=== PATIENT | male | born 1960 | race Caucasian/White ===

== ENCOUNTER 2017-03-14 13:31 | Emergency (ER) | payer OTHER ==
[~2017-03-14] VITALS: Ht 188 cm; Wt 108.8 kg
[~2017-03-14 13:31] MED LIST: ALBU1AER9 INH; AMB10 PO; CYM60 PO; FLM4 PO; FLNIN NAE; FLVHFA220 INH; PANT40TA PO; STRUNK PO; SUCR1TAB PO
[2017-03-14 13:38] VITALS: Ht 188 cm; Wt 108.8 kg
[2017-03-14] MEDS ORDERED: PROMETHAZINE HCL INJ 25 MG in SODIUM CHLORIDE 0.9% 50ML 50 ML IV STA (13:57)
[2017-03-14] MEDS ORDERED: DiphenhydrAMINE HCL 50 MG/ML VIAL IV STA (13:57)
[2017-03-14] MEDS ORDERED: SODIUM CHLORIDE 0.9% 1000ML 1,000 ML IV STA (13:57)
--- NOTE | 2017-03-14 14:03 | EMERGENCY ROOM VISIT NOTE ---
History Report prepared by Anthony: Anna Melara Under the Supervision of: Dr. Mariano Webster D.O. First contact with patient: 13:48 Chief Complaint: HEADACHE Stated Complaint: MIGRAINE HAQUE X 7 DAYS History of Present Illness The patient is a 56 year old male who presents to the Emergency Room with complaints of constant headache starting 1.5 weeks ago. The headache is present behind his eyes, in his temples, and in the back of his head. He had tried taking Aleve today for his headache to no significant relief. He notes the headache started when he was started on Concerta which he is no longer taking. With the new medication, he also started feeling dizzy and lightheaded. He is still feeling dizzy at times and feeling off balance. He has been feeling sore all over. He feels nauseous today. He denies any fever, vomiting, or weakness. He denies head injury. He has a history of malignant melanoma in 2001. He has had a tonsillectomy and adenoidectomy. He notes a family history of aneurysm and stroke. Source of History: patient Onset: 1.5 weeks ago Position: head Quality: ache Timing: constant Associated Symptoms: No fevers, No vomiting, No weakness Note: Pt reports feeling sore all over, dizzy, off balance. Review of Systems See HPI for pertinent positives & negatives. A total of 10 systems reviewed and were otherwise negative. Past Medical & Surgical Medical Problems: (1) Bronchitis (2) malignant melenoma Family History Cancer Diabetes mellitus Heart disease Hypertension Social History Smoking Status: Former Smoker Alcohol Use: occasionally Drug Use: none Housing Status: lives alone Occupation Status: unemployed Current/Historical Medications Scheduled Atomoxetine Hcl (Strattera), 80 MG PO DAILY Montelukast Sodium (Singulair), 10 MG PO QPM Pantoprazole (Protonix), 40 MG PO DAILY Tamsulosin Hcl (Flomax), 0.4 MG PO DAILY Scheduled PRN Acetamin/Butalbital/Caffeine (Fioricet), 1 TAB PO BID PRN for Migraine Naproxen (Naproxen), 1 TAB PO UD PRN for NADER Zolpidem Tartrate (Zolpidem Tartrate), 10 MG PO HS PRN for Insomnia Allergies Coded Allergies: Prednisone (Verified Allergy, Mild, OTHER, 03/14/17) Sulfa Drugs (Verified Allergy, Mild, 03/14/17) Physical Exam Vital Signs Date Time Temp Pulse Resp B/P (MAP) Pulse Ox O2 Delivery O2 Flow Rate FiO2 03/14/17 17:03 78 15 143/85 98 03/14/17 16:31 78 143/85 03/14/17 15:30 84 03/14/17 15:19 81 15 145/91 98 Room Air 03/14/17 13:38 37.1 90 18 182/103 96 Room Air Physical Exam GENERAL: Patient is awake, alert, and in no acute distress. Patient is resting comfortably and showing no signs of anxiety EYES: The conjunctivae are clear. The pupils are round and reactive. EARS, NOSE, MOUTH AND THROAT: The nose is without any evidence of any deformity. Mucous membranes are moist tongue is midline NECK: The neck is nontender and supple. RESPIRATORY: Normal respiratory effort is noted there is no evidence of wheezing rhonchi or rales CARDIOVASCULAR: Regular rate and rhythm noted there no murmurs rubs or gallops normal S1 normal S2 GASTROINTESTINAL: The abdomen is soft. Bowel sounds are present in all quadrants. Abdomen is nontender MUSCULOSKELETAL/EXTREMITIES: There is no evidence of gross deformity full range of motion is noted in the hips and shoulders SKIN: There is no obvious evidence of any rash. There are no petechiae, pallor or cyanosis noted. NEUROLOGIC: Patient is awake alert and oriented x3 strength is symmetric patellar reflexes are 2+ bilaterally Medical Decision & Procedures ER Provider Diagnostic Interpretation: X-ray results as stated below per interpretation by me and the radiologist. Radiology results as stated below per my review and radiologist interpretation: CHEST ONE VIEW PORTABLE HISTORY: Generalized abdominal pain. COMPARISON: Chest 08/29/2011. FINDINGS: Right hilar thickening which has progressed. The lungs are otherwise clear. No pleural effusions. No pneumothorax. The heart is normal in size. IMPRESSION: Progressive right hilar thickening. This could be due to an overlying opacity or right hilar mass/lymphadenopathy. Follow-up PA and lateral views the chest or chest CT are recommended Electronically signed by: Dre Bustillo M.D. 03/14/2017 2:17 PM Dictated Date/Time: 03/14/2017 2:[address] OF THE CHEST WITH IV CONTRAST CLINICAL HISTORY: Abnormal chest radiograph. COMPARISON STUDY: Chest radiograph performed earlier today. TECHNIQUE: Following IV administration of 119 mL of Optiray-320, helical axial images of the chest were obtained. Sagittal and coronal reconstructions were viewed as well as maximal intensity projections on an independent 3-D workstation. A dose lowering technique was utilized adhering to the principles of ALARA. CT DOSE: 1610.23 mGy.cm FINDINGS: No enlarged axillary, mediastinal or hilar lymph nodes are present. The heart is mildly enlarged. There is mild dilatation of the central pulmonary arteries. Note is made of a 1.1 cm circumscribed nodule within the anterior segment of the right upper lobe shown on image 145 of 281. A 7 mm right middle lobe nodule shown image [address] of November 02, 2008 and is benign given stability. There is no consolidation to suggest pneumonia. Subpleural opacities reflect atelectasis. A hypodense right hepatic lobe lesion is unchanged since abdominal CT of November 02, 2008. This is benign given stability. IMPRESSION: 1. 1.1 cm circumscribed right upper lobe nodule. This nodule is indeterminate and a PET/CT could be obtained for further evaluation. 2. Mild dilatation of the central pulmonary arteries which likely accounts for hilar fullness on chest radiograph. This suggests pulmonary arterial hypertension. 3. No thoracic lymphadenopathy. Electronically signed by: Christopher Moreland M.D. 03/14/2017 3:24 PM Dictated Date/Time: 03/14/2017 3:15 PM ANGIOGRAPHY HEAD COMBO CLINICAL HISTORY: Headache. Family history of aneurysm. COMPARISON STUDY: Head CT February 16, 2008. TECHNIQUE: Initially, unenhanced axial images of the head were obtained. Arterial phase images of the head were obtained following intravenous injection of 119 cc Optiray 320 IV. Sagittal and coronal reconstructed reviewed as well as maximal intensity projections on an independent 3-D workstation. FINDINGS: There is trace acute subarachnoid hemorrhage within the left frontal lobe shown best on axial image 18 as well as trace subarachnoid hemorrhage within the posterior right frontal lobe shown on axial image 24 and 25. Ventricular system is normal. Basilar cisterns are patent. There are no extra-axial collections. Andujar-white differentiation is maintained. There are no findings to suggest acute dural sinus thrombosis or acute territorial infarct. There is a risa cisterna magna. Note is made of a probable 2 mm aneurysm of the left cavernous carotid shown on axial image 9256. This likely does not account for the subarachnoid hemorrhage on this examination. No additional intracranial aneurysms are identified. The left vertebral artery is dominant. No abrupt vessel cut off is identified. No additional intracranial aneurysms are identified. IMPRESSION: 2 small foci of acute subarachnoid hemorrhage overlying the left frontal lobe and posterior right frontal lobe. 2 mm left cavernous carotid aneurysm which likely does not account for the subarachnoid hemorrhage. The etiology for the subarachnoid hemorrhage on this exam is unclear. Findings discussed with Dr. Webster at time of dictation. Electronically signed by: Christopher Moreland M.D. 03/14/2017 3:14 PM Dictated Date/Time: 03/14/2017 3:01 PM Laboratory Results 03/14/17 14:20 Red Blood Count 4.92, Mean Corpuscular Volume 89.4, Mean Corpuscular Hemoglobin 31.3, Mean Corpuscular Hemoglobin Concent 35.0, Mean Platelet Volume 9.6, Neutrophils (%) (Auto) 72.8, Lymphocytes (%) (Auto) 16.9, Monocytes (%) (Auto) 6.3, Eosinophils (%) (Auto) 3.6, Basophils (%) (Auto) 0.3, Neutrophils # (Auto) 5.39, Lymphocytes # (Auto) 1.25, Monocytes # (Auto) 0.47, Eosinophils # (Auto) 0.27, Basophils # (Auto) 0.02 03/14/17 14:20 Test 03/14/17 14:20 03/14/17 14:26 White Blood Count 7.41 K/uL (4.8-10.8) Red Blood Count 4.92 M/uL (4.7-6.1) Hemoglobin 15.4 g/dL (14.0-18.0) Hematocrit 44.0 % (42-52) Mean Corpuscular Volume 89.4 fL (80-100) Mean Corpuscular Hemoglobin 31.3 pg (25-34) Mean Corpuscular Hemoglobin Concent 35.0 g/dl (32-36) Platelet Count 213 K/uL (130-400) Mean Platelet Volume 9.6 fL (7.4-10.4) Neutrophils (%) (Auto) 72.8 % Lymphocytes (%) (Auto) 16.9 % Monocytes (%) (Auto) 6.3 % Eosinophils (%) (Auto) 3.6 % Basophils (%) (Auto) 0.3 % Neutrophils # (Auto) 5.39 K/uL (1.4-6.5) Lymphocytes # (Auto) 1.25 K/uL (1.2-3.4) Monocytes # (Auto) 0.47 K/uL (0.11-0.59) Eosinophils # (Auto) 0.27 K/uL (0-0.5) Basophils # (Auto) 0.02 K/uL (0-0.2) RDW Standard Deviation 39.5 fL (36.4-46.3) RDW Coefficient of Variation 12.3 % (11.5-14.5) Immature Granulocyte % (Auto) 0.1 % Immature Granulocyte # (Auto) 0.01 K/uL (0.00-0.02) Prothrombin Time 10.7 SECONDS (9.0-12.0) Prothromb Time International Ratio 1.0 (0.9-1.1) Activated Partial Thromboplast Time 25.9 SECONDS (21.0-31.0) Partial Thromboplastin Ratio 1.0 Est Creatinine Clear Calc Drug Dose 113.7 ml/min Estimated GFR () 104.5 Estimated GFR (Non- 90.2 BUN/Creatinine Ratio 18.1 (10-20) Calcium Level 8.6 mg/dl (8.5-10.1) Total Bilirubin 0.4 mg/dl (0.2-1) Direct Bilirubin 0.1 mg/dl (0-0.2) Aspartate Amino Transf (AST/SGOT) 27 U/L (15-37) Alanine Aminotransferase (ALT/SGPT) 41 U/L (12-78) Alkaline Phosphatase 88 U/L (45-117) Total Protein 7.2 gm/dl (6.4-8.2) Albumin 4.0 gm/dl (3.4-5.0) Lipase 168 U/L (73-393) Bedside Hemoglobin 15.3 g/dl (14.0-18.0) Bedside Hematocrit 45 % (42-52) Bedside Sodium 139 mEq/L (135-144) Bedside Potassium 3.8 mEq/L (3.3-5.0) Bedside Chloride 100 mEq/L (101-112) Bedside Total CO2 27 mEq/l (24-31) Anion Gap 16.0 mmol/L (16-25) Bedside Blood Urea Nitrogen 17 mg/dl (7-18) Bedside Creatinine 1.0 mg/dl (0.6-1.3) Bedside Glucose (other) 85 mg/dl (70-99) Bedside Ionized Calcium (Ngoc) 1.15 mmol/l (1.12-1.32) Laboratory results per my review. Medications Administered Medications (Trade) Dose Ordered Sig/Diane Route Start Time Stop Time Status Last Admin Dose Admin Sodium Chloride 1,000 ml @ 999 mls/hr Q1H1M STAT IV 03/14/17 13:57 03/14/17 14:57 DC 03/14/17 14:16 999 MLS/HR Promethazine HCl 25 mg/Sodium Chloride 51 ml @ 204 mls/hr NOW STAT IV 03/14/17 13:57 03/14/17 14:11 DC 03/14/17 14:16 204 MLS/HR Diphenhydramine HCl (Benadryl Inj) 12.5 mg NOW STAT IV 03/14/17 13:57 03/14/17 13:59 DC 03/14/17 14:16 12.5 MG ED Course 1350: The patient was evaluated in room C11B. A complete history and physical examination were performed. 1357: Benadryl Inj 12.5 mg IV, Promethazine HCl 25 mg/Sodium Chloride 51 ml @ 204 mls/hr IV, NSS 1000 ml @ 999 mls/hr IV. 1510: Dr. Moreland the reading radiologist called and informed me that the patient has a subarachnoid. 1516: I reevaluated the patient. I discussed the results with him. He is in agreement with transfer to [facility] for further management. 1545: I discussed the patients case with Dr. Lopez, ICU attending at [facility]. He has accepted the patient for transfer. Medical Decision Prior records/ancillary studies reviewed. Triage Nursing notes reviewed. The patient's history was concerning for headache. Differential diagnosis: Etiologies such as migraine headache, meningitis, sinusitis, CO exposure, ICH, SAH, infection, tumor, headache, sinus thrombosis, arterial dissection, as well as others were entertained. The patient is a 56-year-old male who presented to the emergency department for an evaluation of headache. The patient does not normally have a history of chronic headaches but started noticing a headache over the last week to week and a half. The patient was seen by his primary care physician. He was started on pain medication but this does not appear to be helping his condition. I discussed the patient's laboratory and radiographic studies with him. He was treated with IV fluids IV pain medicine and IV antiemetics. The patient has a family history for intracranial aneurysm so CT angiography was obtained. This appears to show signs of subarachnoid hemorrhage but no definite source for the blood. I discussed the patient's condition with [facility]. I discussed the case with the neck skewer. They've agreed to accept the patient in transfer. The patient's condition appears to be stable and is been ongoing for the last week. He does not appear to require any parenteral blood pressure management at this time. I feel he can be safely managed and transported via ambulance. I reevaluated the patient multiple times. Medication Reconcilliation Current Medication List: was personally reviewed by me Blood Pressure Screening Patient's blood pressure: Elevated blood pressure Blood pressure disposition: Elevated BP felt to be situational Consults Time Called: 1520 Consulting Physician: Dr. Lopez, ICU attending at [facility] Returned Call: [phone] I discussed the patients case with him. He has accepted the patient for transfer. Impression Primary Impression: Nontraumatic subarachnoid hemorrhage Additional Impressions: Headache Pulmonary nodule Scribe Attestation The scribe's documentation has been prepared under my direction and personally reviewed by me in its entirety. I confirm that the note above accurately reflects all work, treatment, procedures, and medical decision making performed by me. Departure Information Dispostion Transfer Acute Care Facility Referrals No Doctor, Assigned (PCP) Patient Instructions My [facility] Problem Qualifiers Additional Impressions: Headache Headache type: unspecified Headache chronicity pattern: acute headache Intractability: not intractable Qualified Codes: R51 - Headache
[2017-03-14] MEDS ORDERED: NAPR-1221 PO (14:13)
[2017-03-14] MEDS ORDERED: FRCT/ PO (14:13)
[2017-03-14] MEDS ORDERED: STR/80 PO (14:13)
[2017-03-14] MEDS ORDERED: OPTIRAY 320 IV PRN (14:15)
--- NOTE | 2017-03-14 14:19 | DIAGNOSTIC IMAGING REPORT ---
CHEST ONE VIEW PORTABLE HISTORY: Generalized abdominal pain. COMPARISON: Chest 08/29/2011. FINDINGS: Right hilar thickening which has progressed. The lungs are otherwise clear. No pleural effusions. No pneumothorax. The heart is normal in size. IMPRESSION: Progressive right hilar thickening. This could be due to an overlying opacity or right hilar mass/lymphadenopathy. Follow-up PA and lateral views the chest or chest CT are recommended Electronically signed by: Dre Bustillo M.D. 03/14/2017 2:17 PM Dictated Date/Time: 03/14/2017 2:15 PM
[2017-03-14 14:29] LABS: BASO % 0.3 %; BASO ABS # 0.02 K/uL (0-0.2); COMPLETE YES; EOS % 3.6 %; IG% 0.1 %; LYMPH % 16.9 %; LYMPH ABS # 1.25 K/uL (1.2-3.4); MEAN CELL VOLUME 89.4 fL (80-100); MEAN CORPUSCULAR HEMOGLOBIN 31.3 pg (25-34); MEAN PLATELET VOLUME 9.6 fL (7.4-10.4); MONO % 6.3 %; NEUT % 72.8 %; PLATELET COUNT 213 K/uL (130-400); RED BLOOD COUNT 4.92 M/uL (4.7-6.1); WHITE BLOOD COUNT 7.41 K/uL (4.8-10.8)
[2017-03-14 14:35] LABS: PROTHROMBIN TIME (PATIENT) 10.7 SECONDS (9.0-12.0)
[2017-03-14 14:40] LABS: ISTAT HEMOGLOBIN 15.3 g/dl (14.0-18.0); ISTAT IONIZED CALCIUM 1.15 mmol/l (1.12-1.32)
[2017-03-14 14:46] LABS: BUN/CREATININE RATIO 18.1 (10-20); CALCIUM 8.6 mg/dl (8.5-10.1); CREATININE 0.93 mg/dl (0.60-1.40); POTASSIUM 3.7 mmol/L (3.5-5.1)
--- NOTE | 2017-03-14 15:15 | DIAGNOSTIC IMAGING REPORT ---
ANGIOGRAPHY HEAD COMBO CLINICAL HISTORY: Headache. Family history of aneurysm. COMPARISON STUDY: Head CT February 16, 2008. TECHNIQUE: Initially, unenhanced axial images of the head were obtained. Arterial phase images of the head were obtained following intravenous injection of 119 cc Optiray 320 IV. Sagittal and coronal reconstructed reviewed as well as maximal intensity projections on an independent 3-D workstation. FINDINGS: There is trace acute subarachnoid hemorrhage within the left frontal lobe shown best on axial image 18 as well as trace subarachnoid hemorrhage within the posterior right frontal lobe shown on axial image 24 and 25. Ventricular system is normal. Basilar cisterns are patent. There are no extra-axial collections. Andujar-white differentiation is maintained. There are no findings to suggest acute dural sinus thrombosis or acute territorial infarct. There is a risa cisterna magna. Note is made of a probable 2 mm aneurysm of the left cavernous carotid shown on axial image 9256. This likely does not account for the subarachnoid hemorrhage on this examination. No additional intracranial aneurysms are identified. The left vertebral artery is dominant. No abrupt vessel cut off is identified. No additional intracranial aneurysms are identified. IMPRESSION: 2 small foci of acute subarachnoid hemorrhage overlying the left frontal lobe and posterior right frontal lobe. 2 mm left cavernous carotid aneurysm which likely does not account for the subarachnoid hemorrhage. The etiology for the subarachnoid hemorrhage on this exam is unclear. Findings discussed with Dr. Webster at time of dictation. Electronically signed by: Christopher Moreland M.D. 03/14/2017 3:14 PM Dictated Date/Time: 03/14/2017 3:01 PM
--- NOTE | 2017-03-14 15:25 | DIAGNOSTIC IMAGING REPORT ---
CT OF THE CHEST WITH IV CONTRAST CLINICAL HISTORY: Abnormal chest radiograph. COMPARISON STUDY: Chest radiograph performed earlier today. TECHNIQUE: Following IV administration of 119 mL of Optiray-320, helical axial images of the chest were obtained. Sagittal and coronal reconstructions were viewed as well as maximal intensity projections on an independent 3-D workstation. A dose lowering technique was utilized adhering to the principles of ALARA. CT DOSE: 1610.23 mGy.cm FINDINGS: No enlarged axillary, mediastinal or hilar lymph nodes are present. The heart is mildly enlarged. There is mild dilatation of the central pulmonary arteries. Note is made of a 1.1 cm circumscribed nodule within the anterior segment of the right upper lobe shown on image 145 of 281. A 7 mm right middle lobe nodule shown image [address] of November 02, 2008 and is benign given stability. There is no consolidation to suggest pneumonia. Subpleural opacities reflect atelectasis. A hypodense right hepatic lobe lesion is unchanged since abdominal CT of November 02, 2008. This is benign given stability. IMPRESSION: 1. 1.1 cm circumscribed right upper lobe nodule. This nodule is indeterminate and a PET/CT could be obtained for further evaluation. 2. Mild dilatation of the central pulmonary arteries which likely accounts for hilar fullness on chest radiograph. This suggests pulmonary arterial hypertension. 3. No thoracic lymphadenopathy. Electronically signed by: Christopher Moreland M.D. 03/14/2017 3:24 PM Dictated Date/Time: 03/14/2017 3:15 PM
[2017-03-14 17:03] VITALS: BP 143/85; PULSE 78; O2SAT 98
[2017-04-19] MEDS ORDERED: ZOLP10TA6 PO (14:13)
[2017-04-19] MEDS ORDERED: PANT40TA PO (14:13)
[2017-04-19] MEDS ORDERED: TAMS0.4C38 PO (14:13)
[2017-04-19] MEDS ORDERED: MONT1TAB3 PO (14:13)
== END 2017-03-14 17:04 | disposition short-term general hospital (02) ==
LOC: C.EDB 13:32 → C.EDC 17:04
DX: I60.9 Nontraumatic subarachnoid hemorrhage, unspecified (principal); R51 Headache; R91.1 Solitary pulmonary nodule; Z85.820 Personal history of malignant melanoma of skin; Z87.891 Personal history of nicotine dependence; Z79.899 Other long term (current) drug therapy; Z88.2 Allergy status to sulfonamides; Z88.8 Allergy status to other drugs, medicaments and biological substances; Z80.9 Family history of malignant neoplasm, unspecified; Z83.3 Family history of diabetes mellitus; Z82.49 Family history of ischemic heart disease and other diseases of the circulatory system

== ENCOUNTER 2017-04-19 21:50 | Emergency (ER) | payer OTHER ==
[~2017-04-19] VITALS: Ht 188 cm; Wt 111.0 kg
[~2017-04-19 21:50] MED LIST changes: -ALBU1AER9 INH; -AMB10 PO; -CYM60 PO; -FLM4 PO; -FLNIN NAE; -FLVHFA220 INH; +FRCT/ PO; +MONT1TAB3 PO; +NAPR-1221 PO; +STR/80 PO; -STRUNK PO; -SUCR1TAB PO; +TAMS0.4C38 PO; +ZOLP10TA6 PO
[2017-04-19 21:52] VITALS: Ht 188 cm; Wt 111.0 kg
[2017-04-19] MEDS ORDERED: ONDANSETRON INJ 2 MG/ML 2 ML VIAL IV STA (22:07)
[2017-04-19] MEDS ORDERED: LORAZEPAM 2 MG/ML 1 ML VIAL IV STA (22:07)
[2017-04-19] MEDS ORDERED: MoRPHine SULFATE 4 MG/ML 1 ML CARP\\VIAL IV PRN (22:15)
[2017-04-19 22:19] LABS: BASO % 0.4 %; BASO ABS # 0.02 K/uL (0-0.2); COMPLETE YES; EOS % 4.7 %; HEMATOCRIT 41.4 % (42-52); IG% 0.5 %; LYMPH % 32.1 %; LYMPH ABS # 1.78 K/uL (1.2-3.4); MEAN CORPUSCULAR HEMOGLOBIN 31.8 pg (25-34); MEAN CORPUSCULAR HGB CONC 34.5 g/dl (32-36); MEAN PLATELET VOLUME 9.4 fL (7.4-10.4); MONO % 7.7 %; NEUT % 54.6 %; PLATELET COUNT 217 K/uL (130-400); WHITE BLOOD COUNT 5.55 K/uL (4.8-10.8)
--- NOTE | 2017-04-19 22:19 | EMERGENCY ROOM VISIT NOTE ---
History Report prepared by Anthony: Joe Weldon Under the Supervision of: Dr. Darshan Hung M.D. First contact with patient: 22:03 Chief Complaint: NEURO SYMPTOMS Stated Complaint: STOKE AGAIN History of Present Illness The patient is a 56 year old male who presents to the Emergency Room with complaints of a pressure-like headache that began 1 hour ago. He rates his pain an 8/10 in severity. He has a past medical history of an subarachnoid hemorrhage that occurred on March 14 of this year. He was treated at [facility] at that time for three days and his doctors said that his bleed was secondary to his ADD medication Strattera. He stopped taking this medication. They could not find the source of his bleed. He notes that he followed up with his PCP after this and was started on a high blood pressure medication. It caused him to have intermittent headaches, so he was told to stop taking it. He states that his current headache feels similar to how he felt at that time. Tonight, he was having dinner with his when he went home and sat down on his bed. He suddenly was experiencing blurring to his vision and then he began to have this headache. He checked his blood pressure which was 170/90. He denies any weakness or numbness. Source of History: patient Onset: 1 hour ago Position: head Symptom Intensity: 8/10 Quality: pressure Timing: constant Associated Symptoms: No weakness, No numbness Note: He is having vision blurring and notes that his blood pressure is elevated. Review of Systems See HPI for pertinent positives & negatives. A total of 10 systems reviewed and were otherwise negative. Past Medical & Surgical Medical Problems: (1) Bronchitis (2) malignant melenoma Family History Cancer Diabetes mellitus Heart disease Hypertension Social History Smoking Status: Former Smoker Alcohol Use: occasionally Drug Use: none Housing Status: lives alone Occupation Status: unemployed Current/Historical Medications Scheduled Fexofenadine Hcl (Vanessa), 180 MG PO QAM Lisinopril (Prinivil), 10 MG PO QD@08 Montelukast Sodium (Singulair), 10 MG PO HS Multiple Vitamins W/ Minerals (Multi For Him 50+), 1 TAB PO QAM Pantoprazole (Protonix), 40 MG PO QAM Tamsulosin Hcl (Flomax), 0.4 MG PO QAM Scheduled PRN Zolpidem Tartrate (Zolpidem Tartrate), 10 MG PO HS PRN for Insomnia Allergies Coded Allergies: Prednisone (Verified Allergy, Mild, OTHER, 03/14/17) Sulfa Drugs (Verified Allergy, Mild, 03/14/17) Physical Exam Vital Signs Date Time Temp Pulse Resp B/P (MAP) Pulse Ox O2 Delivery O2 Flow Rate FiO2 04/19/17 23:07 36.8 54 18 113/79 95 Room Air 04/19/17 22:46 55 04/19/17 22:23 36.9 60 18 173/76 97 Room Air 04/19/17 21:52 36.9 58 18 189/88 97 Room Air Physical Exam GENERAL: Patient is in no acute distress. HEENT: No acute trauma, normocephalic atraumatic, mucous membranes moist, no nasal congestion, no scleral icterus. NECK: No stridor, no adenopathy, no meningismus, trachea is midline. LUNGS: Clear to auscultation bilaterally, no wheeze, no rhonchi, breath sounds equal. HEART: Without murmurs gallops or rubs, regular rate and rhythm. ABDOMEN: Soft, nontender, bowel sounds positive, no hernias, no peritonitis. EXTREMITIES: No cyanosis or edema, full range of motion of all the joints without pain or difficulty, no signs for acute trauma. NEUROLOGIC: Oriented x 3, no acute motor or sensory deficits, no focal weakness. No pronator drift or cerebellar dysfunction. No speech slur or facial droop. SKIN: No rash, no jaundice, no diaphoresis. Medical Decision & Procedures ER Provider Diagnostic Interpretation: Radiology results as stated below per my review and radiologist interpretation: HEAD WITHOUT CONTRAST (CT) CT DOSE: 712.55 mGy.cm HISTORY: Mental status change Evaluate for hemorrhage or pathology TECHNIQUE: Multiaxial CT images of the head were performed without the use of intravenous contrast. A dose lowering technique was utilized adhering to the principles of ALARA. Comparison: 03/12/2017 Findings: The paranasal sinuses and mastoid air cells are clear. The calvarium and skull base are intact. The ventricles and sulci are within normal limits. There is no mass, hematoma, midline shift, or acute infarct. Previously described left subarachnoid hemorrhage has resolved. No evidence for acute intracranial hemorrhage. Impression: No acute intracranial abnormality. The above report was generated using voice recognition software. It may contain grammatical, syntax or spelling errors. Electronically signed by: Mike Maldonado M.D. 04/19/2017 10:32 PM Dictated Date/Time: 04/19/2017 10:31 PM Laboratory Results 04/19/17 22:07 Red Blood Count 4.50, Mean Corpuscular Volume 92.0, Mean Corpuscular Hemoglobin 31.8, Mean Corpuscular Hemoglobin Concent 34.5, Mean Platelet Volume 9.4, Neutrophils (%) (Auto) 54.6, Lymphocytes (%) (Auto) 32.1, Monocytes (%) (Auto) 7.7, Eosinophils (%) (Auto) 4.7, Basophils (%) (Auto) 0.4, Neutrophils # (Auto) 3.03, Lymphocytes # (Auto) 1.78, Monocytes # (Auto) 0.43, Eosinophils # (Auto) 0.26, Basophils # (Auto) 0.02 04/19/17 22:07 Test 04/19/17 22:07 White Blood Count 5.55 K/uL (4.8-10.8) Red Blood Count 4.50 M/uL (4.7-6.1) Hemoglobin 14.3 g/dL (14.0-18.0) Hematocrit 41.4 % (42-52) Mean Corpuscular Volume 92.0 fL (80-100) Mean Corpuscular Hemoglobin 31.8 pg (25-34) Mean Corpuscular Hemoglobin Concent 34.5 g/dl (32-36) Platelet Count 217 K/uL (130-400) Mean Platelet Volume 9.4 fL (7.4-10.4) Neutrophils (%) (Auto) 54.6 % Lymphocytes (%) (Auto) 32.1 % Monocytes (%) (Auto) 7.7 % Eosinophils (%) (Auto) 4.7 % Basophils (%) (Auto) 0.4 % Neutrophils # (Auto) 3.03 K/uL (1.4-6.5) Lymphocytes # (Auto) 1.78 K/uL (1.2-3.4) Monocytes # (Auto) 0.43 K/uL (0.11-0.59) Eosinophils # (Auto) 0.26 K/uL (0-0.5) Basophils # (Auto) 0.02 K/uL (0-0.2) RDW Standard Deviation 42.6 fL (36.4-46.3) RDW Coefficient of Variation 12.7 % (11.5-14.5) Immature Granulocyte % (Auto) 0.5 % Immature Granulocyte # (Auto) 0.03 K/uL (0.00-0.02) Prothrombin Time 10.7 SECONDS (9.0-12.0) Prothromb Time International Ratio 1.0 (0.9-1.1) Activated Partial Thromboplast Time 25.7 SECONDS (21.0-31.0) Partial Thromboplastin Ratio 1.0 Anion Gap 8.0 mmol/L (3-11) Est Creatinine Clear Calc Drug Dose 107.8 ml/min Estimated GFR () 96.9 Estimated GFR (Non- 83.6 BUN/Creatinine Ratio 15.2 (10-20) Calcium Level 8.9 mg/dl (8.5-10.1) Total Bilirubin 0.2 mg/dl (0.2-1) Aspartate Amino Transf (AST/SGOT) 31 U/L (15-37) Alanine Aminotransferase (ALT/SGPT) 47 U/L (12-78) Alkaline Phosphatase 114 U/L (45-117) Total Protein 7.9 gm/dl (6.4-8.2) Albumin 4.2 gm/dl (3.4-5.0) Globulin 3.7 gm/dl (2.5-4.0) Albumin/Globulin Ratio 1.1 (0.9-2) Laboratory results reviewed by me. Medications Administered Medications (Trade) Dose Ordered Sig/Diane Route Start Time Stop Time Status Last Admin Dose Admin Ondansetron HCl (Zofran Inj) 4 mg NOW STAT IV 04/19/17 22:07 04/19/17 22:11 DC 04/19/17 22:18 4 MG Morphine Sulfate (MoRPHine SULFATE INJ) 4 mg Q15M PRN IV 04/19/17 22:15 04/19/17 23:42 DC 04/19/17 22:17 4 MG Lorazepam (Ativan Inj) 1 mg NOW STAT IV 04/19/17 22:07 04/19/17 22:11 DC 04/19/17 22:18 1 MG Lisinopril (Zestril Tab) 10 mg NOW STAT PO 04/19/17 23:09 04/19/17 23:10 DC 04/19/17 23:28 10 MG ED Course 2202: The patient was evaluated in room A3. A complete history and physical exam was performed. 2206: Ordered Ativan Inj 1 mg IV, Zofran Inj 4 mg IV 2214: Ordered Morphine Sulfate 4 mg IV 2308: Ordered Zestril Tab 10 mg PO. The patient is feeling better. He will follow up with his PCP later this week to reassess his blood pressure. 0: Reevaluated the patient. Discussed results and discharge instructions: He verbalized understanding and agreement. The patient is ready for discharge. Medical Decision Differential diagnosis includes but is not limited to recurrent subarachnoid hemorrhage, intracranial bleeding, stroke, headache, hypertension, stress, electrolyte abnormality, anemia, and infection. There is no leukocytosis or concerning anemia. No significant electrolyte abnormality, kidney failure or hepatitis. There is no coagulopathy. Brain CT shows no acute bleed or mass effect. The area of previous bleeding has resolved. On my exam, there were no focal neurologic deficits. The patient was not febrile. The patient admits to some increased stress and anxiety. He was very concerned about his elevated blood pressure. He did receive IV morphine, IV Zofran and IV Ativan. He was eventually given a dose of oral lisinopril. The patient was reassured by his testing. Patient had been on some medication for blood pressure, he believes it was Norvasc. He did not tolerate this medication and it was stopped. He was not started on anything new. I am going to discharge the patient on lisinopril, 10 mg daily for now. He will see his doctor this week to see how his blood pressure is running. He will return to this ER for worsening symptoms, worsening headache or lack of improvement. Certainly, his elevated blood pressure may have led to his presentation today. Anxiety may also have been part of the reason for his visit. Medication Reconcilliation Current Medication List: was personally reviewed by me Blood Pressure Screening Patient's blood pressure: Elevated blood pressure Blood pressure disposition: Referred to PCP Impression Primary Impression: Blurry vision Additional Impressions: Headache Hypertension Scribe Attestation The scribe's documentation has been prepared under my direction and personally reviewed by me in its entirety. I confirm that the note above accurately reflects all work, treatment, procedures, and medical decision making performed by me. Departure Information Dispostion Home / Self-Care Prescriptions Lisinopril (Prinivil) 10 Mg Tab 10 MG PO QD@08, #10 TAB 1 Refill Prov: Darshan Hung M.D. 04/19/17 Referrals No Doctor, Assigned (PCP) Forms HOME CARE DOCUMENTATION FORM, IMPORTANT VISIT INFORMATION, WORK / SCHOOL INSTRUCTIONS Patient Instructions My [facility] Additional Instructions start Lisinopril for blood pressure control see your fam md this week for a recheck of the blood pressure brain CT scan and lab testing was all ok today return if worsening Problem Qualifiers
[2017-04-19 22:29] LABS: PROTHROMBIN TIME (PATIENT) 10.7 SECONDS (9.0-12.0)
[2017-04-19 22:31] LABS: BUN/CREATININE RATIO 15.2 (10-20); CALCIUM 8.9 mg/dl (8.5-10.1); CREATININE 0.99 mg/dl (0.60-1.40); POTASSIUM 3.6 mmol/L (3.5-5.1)
[2017-04-19 22:34] LABS: ALB/GLOB RATIO 1.1 (0.9-2)
--- NOTE | 2017-04-19 22:34 | DIAGNOSTIC IMAGING REPORT ---
HEAD WITHOUT CONTRAST (CT) CT DOSE: 712.55 mGy.cm HISTORY: Mental status change Evaluate for hemorrhage or pathology TECHNIQUE: Multiaxial CT images of the head were performed without the use of intravenous contrast. A dose lowering technique was utilized adhering to the principles of ALARA. Comparison: 03/12/2017 Findings: The paranasal sinuses and mastoid air cells are clear. The calvarium and skull base are intact. The ventricles and sulci are within normal limits. There is no mass, hematoma, midline shift, or acute infarct. Previously described left subarachnoid hemorrhage has resolved. No evidence for acute intracranial hemorrhage. Impression: No acute intracranial abnormality. The above report was generated using voice recognition software. It may contain grammatical, syntax or spelling errors. Electronically signed by: Mike Maldonado M.D. 04/19/2017 10:32 PM Dictated Date/Time: 04/19/2017 10:31 PM
[2017-04-19] MEDS ORDERED: FEXO1TAB46 PO (22:48)
[2017-04-19] MEDS ORDERED: MULT-221 PO (22:48)
[2017-04-19 23:07] VITALS: BP 113/79; PULSE 54; TEMP 36.8; O2SAT 95
[2017-04-19] MEDS ORDERED: LISINOPRIL 10 MG TAB PO STA (23:09)
[2017-04-19] MEDS ORDERED: LISI10TA PO (23:13)
== END 2017-04-19 23:27 | disposition home or self-care (01) ==
LOC: C.EDB 21:51 → C.EDA 23:27
DX: R51 Headache (principal); I10 Essential (primary) hypertension; H53.8 Other visual disturbances; F90.9 Attention-deficit hyperactivity disorder, unspecified type; Z85.820 Personal history of malignant melanoma of skin; Z87.891 Personal history of nicotine dependence; Z80.9 Family history of malignant neoplasm, unspecified; Z83.3 Family history of diabetes mellitus; Z82.49 Family history of ischemic heart disease and other diseases of the circulatory system; Z79.899 Other long term (current) drug therapy; F41.9 Anxiety disorder, unspecified; F43.9 Reaction to severe stress, unspecified

== ENCOUNTER 2017-07-21 12:21 | Emergency (ER) | payer OTHER ==
[~2017-07-21] VITALS: Ht 188 cm; Wt 113.8 kg
[~2017-07-21 12:21] MED LIST changes: +FEXO1TAB46 PO; -FRCT/ PO; +LISI10TA PO; +MULT-221 PO; -NAPR-1221 PO; -STR/80 PO
[2017-07-21 12:29] VITALS: Ht 188 cm; Wt 113.8 kg
[2017-07-21] MEDS ORDERED: MAGN400T6 PO (12:45)
[2017-07-21 13:36] LABS: BASO % 0.6 %; BASO ABS # 0.02 K/uL (0-0.2); EOS % 4.3 %; EOS ABS # 0.15 K/uL (0-0.5); HEMATOCRIT 41.9 % (42-52); HEMOGLOBIN 14.7 g/dL (14.0-18.0); LYMPH % 25.6 %; LYMPH ABS # 0.89 K/uL (1.2-3.4); MEAN CELL VOLUME 89.9 fL (80-100); MEAN CORPUSCULAR HEMOGLOBIN 31.5 pg (25-34); MEAN CORPUSCULAR HGB CONC 35.1 g/dl (32-36); MEAN PLATELET VOLUME 9.7 fL (7.4-10.4); MONO % 7.8 %; MONO ABS # 0.27 K/uL (0.11-0.59); NEUT % 61.7 %; NEUT ABS # 2.14 K/uL (1.4-6.5); PLATELET COUNT 210 K/uL (130-400); RED CELL DISTRIBUTION WIDTH CV 12.4 % (11.5-14.5); RED CELL DISTRIBUTION WIDTH SD 40.3 fL (36.4-46.3); WHITE BLOOD COUNT 3.47 K/uL (4.8-10.8)
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
[2017-07-21 13:46] LABS: PTT PATIENT 25.3 SECONDS (21.0-31.0)
--- NOTE | 2017-07-21 13:53 | DIAGNOSTIC IMAGING REPORT ---
CT HEAD WITHOUT CONTRAST (CT) CLINICAL HISTORY: Dizziness. Headache. Head trauma. COMPARISON STUDY: 04/19/2017 TECHNIQUE: Axial CT of the brain is performed from the vertex to the skull base. IV contrast was not administered for this examination. A dose lowering technique was utilized adhering to the principles of ALARA. CT DOSE: 788.63 mGycm FINDINGS: No intra or extra-axial mass lesions are visualized. There is no CT evidence of acute cortical infarction. There is no evidence of midline shift. There is no acute hemorrhage. No calvarial fractures are visualized. There is no evidence of pathologic ventricular dilatation. There is no evidence of acute sinusitis IMPRESSION: No acute intracranial findings Electronically signed by: Cristi Hough M.D. 07/21/2017 1:51 PM Dictated Date/Time: 07/21/2017 1:50 PM
[2017-07-21 13:55] LABS: CALCIUM 9.1 mg/dl (8.5-10.1); CREATININE 1.05 mg/dl (0.60-1.40); POTASSIUM 3.7 mmol/L (3.5-5.1)
--- NOTE | 2017-07-21 13:56 | DIAGNOSTIC IMAGING REPORT ---
CT OF THE CERVICAL SPINE CLINICAL HISTORY: Neck pain status post trauma COMPARISON STUDY: 2007 CT DOSE: 487.91 mGycm TECHNIQUE: CT scan of the cervical spine was performed from the skull base to the thoracic inlet. Images are reviewed in the axial, sagittal, and coronal planes. IV contrast was not administered for this examination. A dose lowering technique was utilized adhering to the principles of ALARA. FINDINGS: The visualized portions of the lung apices reveal no evidence of pneumothorax. The prevertebral soft tissues are normal. No fractures or traumatic subluxations are visualized. There are multilevel degenerative changes. 2.8 mm of retrolisthesis of C3 on C4 is felt to be degenerative. 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 IMPRESSION: No evidence of acute fracture or traumatic subluxation. Electronically signed by: Cristi Hough M.D. 07/21/2017 1:54 PM Dictated Date/Time: 07/21/2017 1:51 PM
[2017-07-21 14:09] VITALS: O2SAT 95
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
[2017-07-21] MEDS ORDERED: IBUPROFEN 600 MG TAB PO STA (15:04)
[2017-07-21] MEDS ORDERED: ONDANSETRON INJ 2 MG/ML 2 ML VIAL IV STA (15:12)
[2017-07-21] MEDS ORDERED: ONDA4TAB46 PO (15:14)
[2017-07-21] MEDS ORDERED: TRAM-453 PO (15:14)
[2017-07-21 16:05] VITALS: BP 150/90; PULSE 54; TEMP 36.8; O2SAT 99
== END 2017-07-21 16:05 | disposition home or self-care (01) ==
LOC: EDBD 12:21 → C.EDA 12:23
DX: S22.32XA Fracture of one rib, left side, initial encounter for closed fracture (principal); R51 Headache; M54.2 Cervicalgia; M54.6 Pain in thoracic spine; R00.1 Bradycardia, unspecified; Z79.899 Other long term (current) drug therapy; Z88.2 Allergy status to sulfonamides; Z88.8 Allergy status to other drugs, medicaments and biological substances; Z85.820 Personal history of malignant melanoma of skin; Z86.73 Personal history of transient ischemic attack (TIA), and cerebral infarction without residual deficits; Z87.891 Personal history of nicotine dependence; Z82.49 Family history of ischemic heart disease and other diseases of the circulatory system; Z83.3 Family history of diabetes mellitus; V89.2XXA Person injured in unspecified motor-vehicle accident, traffic, initial encounter

== ENCOUNTER 2017-09-29 12:42 | Emergency (ER) | payer OTHER ==
[~2017-09-29] VITALS: Ht 188 cm; Wt 114.5 kg
[~2017-09-29 12:42] MED LIST changes: -FEXO1TAB46 PO; +MAGN400T6 PO; +ONDA4TAB46 PO
[2017-09-29 12:52] VITALS: TEMP 36.9; Ht 188 cm; Wt 114.5 kg
[2017-09-29] MEDS ORDERED: IBUPROFEN 600 MG TAB PO STA (13:08)
[2017-09-29] MEDS ORDERED: ACETAMINOPHEN 500 MG TAB PO STA (13:08)
--- NOTE | 2017-09-29 13:15 | EMERGENCY ROOM VISIT NOTE ---
History Report prepared by Anthony: Imtiaz Cool Under the Supervision of: Dr. Darshan Hung M.D. First contact with patient: 12:59 Chief Complaint: HEADACHE Stated Complaint: HEADACHE History of Present Illness The patient is a 56 year old male who presents to the Emergency Room with complaints of a constant headache that began on Wednesday, 5 days ago. The patient describes the headache as a "pressure pressing down" on the top of his head. He rates the severity of his pain as an 8/10 currently. The patient had a Subarachnoid Hemorrhage in February of 2017. He did have a headache with this episode, but the severity of the pain was more severe as compared to today. The patient was seen at the [facility] today, who referred him here due to his headache. He adds that he had recurrent headaches after the hemorrhage and was placed on 25 mg of Metoprol daily. He recently had this dosage cut to 12.5 mg daily due to feeling tired. This medication was changed by a neurologist at the [facility] in [place]. Source of History: patient Onset: 5 days ago Position: head (Top of head) Symptom Intensity: 8/10 Quality: pressure, other ("pressing down") Timing: constant Review of Systems See HPI for pertinent positives & negatives. A total of 10 systems reviewed and were otherwise negative. Past Medical & Surgical Medical Problems: (1) Bronchitis (2) malignant melenoma Family History Cancer Diabetes mellitus Heart disease Hypertension Social History Smoking Status: Never Smoker Alcohol Use: occasionally Drug Use: none Housing Status: lives alone Occupation Status: unemployed Current/Historical Medications Scheduled Loratadine (Claritin), 10 MG PO QAM Magnesium Oxide (Mag-Ox), 420 MG PO BID Metoprolol Succinate (Toprol Xl), 37.5 MG PO DAILY Montelukast Sodium (Singulair), 10 MG PO HS Multiple Vitamins W/ Minerals (Multi For Him 50+), 1 TAB PO QAM Pantoprazole (Protonix), 40 MG PO QAM Tamsulosin Hcl (Flomax), 0.4 MG PO QAM Zolpidem Tartrate (Zolpidem Tartrate), 10 MG PO HS Scheduled PRN Albuterol Hfa (Ventolin Hfa), 2 PUFFS INH Q6H PRN for Shortness of Breath Sildenafil Citrate (Viagra), 100 MG PO WEEKLY PRN for ED Allergies Coded Allergies: Prednisone (Verified Allergy, Mild, OTHER, 09/29/17) Sulfa Drugs (Verified Allergy, Mild, 09/29/17) Latex (Unverified Adverse Reaction, Intermediate, ITCHY, 09/29/17) Physical Exam Vital Signs Date Time Temp Pulse Resp B/P (MAP) Pulse Ox O2 Delivery O2 Flow Rate FiO2 09/29/17 16:26 47 16 146/88 99 09/29/17 14:56 84 16 146/88 09/29/17 12:52 36.9 53 20 136/92 96 Room Air Physical Exam GENERAL: Patient is in no acute distress. HEENT: No acute trauma, normocephalic atraumatic, mucous membranes moist, no nasal congestion, no scleral icterus. NECK: No stridor, no adenopathy, no meningismus, trachea is midline. LUNGS: Clear to auscultation bilaterally, no wheeze, no rhonchi, breath sounds equal. HEART: Without murmurs gallops or rubs, regular rate and rhythm. ABDOMEN: Soft, nontender, bowel sounds positive, no hernias, no peritonitis. EXTREMITIES: No cyanosis or edema, full range of motion of all the joints without pain or difficulty, no signs for acute trauma. NEUROLOGIC: Oriented x 3, no acute motor or sensory deficits, no focal weakness. There is no pronator drift or cerebellar dysfunction. SKIN: No rash, no jaundice, no diaphoresis. Medical Decision & Procedures ER Provider Diagnostic Interpretation: Radiology results as stated below per my review and radiologist interpretation: HEAD WITHOUT CONTRAST (CT) CLINICAL HISTORY: 56 years-old Male with HEADACHE, HIST OR SA HEM. Acute headache TECHNIQUE: Multiple axial CT images of the head were obtained without contrast. A dose lowering technique was utilized adhering to the principles of ALARA. CT DOSE: 788.63 mGycm COMPARISON: CT head 07/21/2017. FINDINGS: No acute intracranial hemorrhage, midline shift, intracranial mass, hydrocephalus, territorial ischemia or abnormal extra-axial collection. 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 Minimal patchy low-attenuation within the periventricular white matter suggests chronic microvascular ischemic changes. The calvarium is intact. The paranasal sinuses, mastoid air cells, and middle ear cavities are clear. Prior left-sided maxillary antrostomy. IMPRESSION: No acute intracranial abnormality. The above report was generated using voice recognition software. It may contain grammatical, syntax or spelling errors. Electronically signed by: Gerardo Gaston M.D. 09/29/2017 1:44 PM Dictated Date/Time: 09/29/2017 1:38 PM Medications Administered Medications (Trade) Dose Ordered Sig/Diane Route Start Time Stop Time Status Last Admin Dose Admin Acetaminophen (Tylenol Tab) 1,000 mg NOW STAT PO 09/29/17 13:08 09/29/17 13:10 DC 09/29/17 13:05 1,000 MG Ibuprofen (Motrin Tab) 600 mg NOW STAT PO 09/29/17 13:08 09/29/17 13:10 DC 09/29/17 13:05 600 MG ED Course 1304: The patient was evaluated in room C8. A complete history and physical exam was performed. 1308: Ibuprofen 600 mg PO, Tylenol 1000 mg PO. 1452: I updated the patient at this time. I let him know that we are trying to get in contact with his Neurologist in [place]. 1607: The [employer] informed me that the [facility] in [place] states that his neurologist is not in today, and does not have anyone on-call for her. I will page with Dr. Ag. 1611: I discussed the case with Dr. Ag - Neurology. She is in agreement with increasing the Metoprol back up to 25 mg and following up with his neurologist in [place]. 1619: Reevaluated the patient. Discussed results and discharge instructions: He verbalized understanding and agreement. The patient is ready for discharge. Medical Decision Differential Diagnosis includes; Intracranial bleeding, subarachnoid hemorrhage , medication reaction, infection, tension headache, and meningitis. The patient presents with a headache. He has a history of subarachnoid hemorrhage although, the pain from the hemorrhage was more severe than today's headache. The patient states his headache started after decreasing his metoprolol dose over the weekend. The patient has no neurologic findings, he is not febrile or toxic. A brain CT was done, there was no acute bleed or mass-effect. I spent some time trying to contact the patient's neurologist from the [facility] in [place], these attempts were unsuccessful. I spoke to our neurologist at this hospital, the patient was felt safe for discharge home. He will increase his metoprolol dose back to the dose he was on previously as this is likely the reason for the headache. He will contact his neurologist for follow-up and return here for worsening symptoms. He was reassured and discharged home. Medication Reconcilliation Current Medication List: was personally reviewed by me Blood Pressure Screening Patient's blood pressure: Elevated blood pressure Blood pressure disposition: Referred to PCP Consults Time Called: 1610 Consulting Physician: Dr. Ag - Neurology Returned Call: 1611 I discussed the case with Dr. Ancelmo [facility]. She is in agreement with increasing the Metoprol back up to 25 mg and following up with his neurologist in [place]. Impression Primary Impression: Headache Additional Impression: Hx of subarachnoid hemorrhage Scribe Attestation The scribe's documentation has been prepared under my direction and personally reviewed by me in its entirety. I confirm that the note above accurately reflects all work, treatment, procedures, and medical decision making performed by me. Departure Information Dispostion Home / Self-Care Referrals No Doctor, Assigned (PCP) Forms HOME CARE DOCUMENTATION FORM, IMPORTANT VISIT INFORMATION [facility] Additional Instructions increase the metoprolol back to the prior dose otc pain meds as needed rest return for worsening symptoms, worsening headache, vomiting or fever CT scan today was read as normal Problem Qualifiers
[2017-09-29] MEDS ORDERED: VNTHFA/IN INH (13:40)
[2017-09-29] MEDS ORDERED: FLUT0.15 NAE (13:40)
[2017-09-29] MEDS ORDERED: SILD100T PO (13:40)
[2017-09-29] MEDS ORDERED: POLY335019 PO (13:40)
[2017-09-29] MEDS ORDERED: METO25TA4 PO (13:40)
[2017-09-29] MEDS ORDERED: LORA10TA6 PO (13:40)
--- NOTE | 2017-09-29 13:45 | DIAGNOSTIC IMAGING REPORT ---
HEAD WITHOUT CONTRAST (CT) CLINICAL HISTORY: 56 years-old Male with HEADACHE, HIST OR SA HEM. Acute headache TECHNIQUE: Multiple axial CT images of the head were obtained without contrast. A dose lowering technique was utilized adhering to the principles of ALARA. CT DOSE: 788.63 mGycm COMPARISON: CT head 07/21/2017. FINDINGS: No acute intracranial hemorrhage, midline shift, intracranial mass, hydrocephalus, territorial ischemia or abnormal extra-axial collection. 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 Minimal patchy low-attenuation within the periventricular white matter suggests chronic microvascular ischemic changes. The calvarium is intact. The paranasal sinuses, mastoid air cells, and middle ear cavities are clear. Prior left-sided maxillary antrostomy. IMPRESSION: No acute intracranial abnormality. The above report was generated using voice recognition software. It may contain grammatical, syntax or spelling errors. Electronically signed by: Gerardo Gaston M.D. 09/29/2017 1:44 PM Dictated Date/Time: 09/29/2017 1:38 PM
[2017-09-29 16:26] VITALS: BP 146/88; PULSE 47; O2SAT 99
== END 2017-09-29 16:27 | disposition home or self-care (01) ==
LOC: C.EDB 12:44 → C.EDC 16:27
DX: R51 Headache (principal); Z86.73 Personal history of transient ischemic attack (TIA), and cerebral infarction without residual deficits; Z85.820 Personal history of malignant melanoma of skin; Z80.9 Family history of malignant neoplasm, unspecified; Z83.3 Family history of diabetes mellitus; Z82.49 Family history of ischemic heart disease and other diseases of the circulatory system; Z88.2 Allergy status to sulfonamides; Z88.8 Allergy status to other drugs, medicaments and biological substances; Z91.040 Latex allergy status